=== PATIENT | male | born 1990 | race Asian ===

== ENCOUNTER 2022-06-05 14:15 | Outpatient (CLI) | payer BC | END 2022-06-05 14:16 | disposition home or self-care (01) | LOC: CSHULT 14:15 | PROVIDERS: ATTEND Otolaryngology Plastic Surgery within the Head & Neck | DX: E04.9 Nontoxic goiter, unspecified (principal) | CPT/HCPCS: 76536 ==

== ENCOUNTER 2023-09-09 13:38 | Outpatient (CLI) | payer BC | END 2023-09-09 13:39 | disposition home or self-care (01) | LOC: CSHULT 13:38 | PROVIDERS: ATTEND Otolaryngology Plastic Surgery within the Head & Neck | DX: E04.9 Nontoxic goiter, unspecified (principal); E04.1 Nontoxic single thyroid nodule | CPT/HCPCS: 76536 ==